=== PATIENT | female | born 1985 | race Caucasian/White ===

== ENCOUNTER 2021-10-22 10:51 | Day surgery (SDC) | payer OTHER ==
[2021-10-22 11:21] VITALS: BMI 36.7
== END 2021-10-22 14:00 | disposition home or self-care (01) ==
LOC: CSHLD/OP 10:51
PROVIDERS: ATTEND Family Medicine
DX: O24.419 Gestational diabetes mellitus in pregnancy, unspecified control (principal); Z3A.34 34 weeks gestation of pregnancy
CPT/HCPCS: 36416; 59025; 76815; 76819; 99281

== ENCOUNTER 2021-11-02 14:21 | Day surgery (SDC) | payer OTHER ==
[2021-11-02] MEDS ORDERED: hydrALAZINE 20 MG/ML VIAL SLOW IVP PRN (14:59)
== END 2021-11-02 16:20 | disposition home or self-care (01) ==
LOC: CSHLD/OP 14:21
PROVIDERS: ATTEND Family Medicine
DX: O24.414 Gestational diabetes mellitus in pregnancy, insulin controlled (principal); O32.1XX0 Maternal care for breech presentation, not applicable or unspecified; O09.523 Supervision of elderly multigravida, third trimester; Z3A.35 35 weeks gestation of pregnancy
CPT/HCPCS: 59025; 76819; 99282

== ENCOUNTER 2021-11-05 15:03 | Outpatient (CLI) | payer OTHER ==
[2021-11-06 17:10] LABS: SARS-CoV-2 PCR by NAA Not Detected (NotDetected)
== END 2021-11-05 15:04 | disposition home or self-care (01) ==
LOC: CSHLAB 15:03
PROVIDERS: ATTEND Family Medicine
DX: Z20.822 Contact with and (suspected) exposure to COVID-19 (principal)
CPT/HCPCS: U0003; U0005

== ENCOUNTER 2021-11-05 15:17 | Day surgery (SDC) | payer OTHER | END 2021-11-05 17:20 | disposition home or self-care (01) | LOC: CSHLD/OP 15:17 | PROVIDERS: ATTEND Family Medicine | DX: O24.414 Gestational diabetes mellitus in pregnancy, insulin controlled (principal); O13.3 Gestational [pregnancy-induced] hypertension without significant proteinuria, third trimester; O09.523 Supervision of elderly multigravida, third trimester; Z3A.36 36 weeks gestation of pregnancy; Z20.822 Contact with and (suspected) exposure to COVID-19 | CPT/HCPCS: 76819; 99282; U0003; U0005 ==